=== PATIENT | male | born 1940 | race Hispanic/Latino ===

== ENCOUNTER 2017-12-04 14:25 | Inpatient (IN) | payer OTHER ==
[~2017-12-04] VITALS: Ht 167.6 cm; Wt 79.9 kg
[2017-12-04 15:09] LABS: BASOPHILS % (AUTO) 0.2 % (0.0-5.0); EOSINOPHILS % (AUTO) 2.1 % (0.0-8.0); HEMATOCRIT 26.1 % (42-54); LYMPHOCYTES % (AUTO) 10.1 % (21.0-51.0); MEAN CORPUSCULAR HGB CONC 34.2 g/dL (32.0-36.0); MEAN CORPUSCULAR VOLUME 93.6 fL (79-99); MONOCYTES % (AUTO) 13.1 % (3.0-13.0); NEUTROPHILS % (AUTO) 74.5 % (40.0-77.0); PLATELET COUNT (AUTO) 214 K/uL (130-400); RED BLOOD CELL COUNT(AUTO) 2.79 MIL/uL (4.50-6.20); RED CELL DISTRIBUTION WIDTH 13.1 % (11.0-15.5); WHITE BLOOD COUNT (AUTO) 7.1 K/uL (4.8-10.8)
[2017-12-04] MEDS ORDERED: SODIUM CHLORIDE 0.9% 1000ML 1,000 ML IV ONE (15:10)
[2017-12-04] MEDS ORDERED: ACETAMINOPHEN 325 MG TAB ONE (15:10)
[2017-12-04 15:25] LABS: INR 0.95 (0.85-1.15); PARTIAL THROMBOPLASTIN TIME 26.6 SEC (26.3-35.5)
[2017-12-04 15:34] LABS: ALANINE AMINOTRANSFERASE 12 U/L (12-78); ASPARTATE AMINOTRANSFERASE 18 U/L (10-37); BILIRUBIN,TOTAL 0.4 mg/dL (0.2-1.0); CARBON DIOXIDE 19 mmol/L (21-32); CHLORIDE 99 mmol/L (101-111); CREATINE KINASE MB 0.9 ng/mL (0.5-3.6); CREATINE KINASE, TOTAL 110 U/L (21-232); GLOMERULAR FILTR. RATE CALC 7 mL/min (>60); GLUCOSE,RANDOM 174 mg/dL (70-105); MYOGLOBIN 321 ng/mL (10-92); SODIUM SERUM 133 mmol/L (136-145); TROPONIN I < 0.04 ng/mL (0.00-0.06)
[2017-12-04 15:46] LABS: CREATININE 8.1 mg/dL (0.5-1.5); UREA NITROGEN, BLOOD 111 mg/dL (7-18)
[2017-12-04] MEDS ORDERED: MEROPENEM 1 GM VIAL ONE (15:56)
[2017-12-04] MEDS ORDERED: VANCOMYCIN 1.5 GM in SODIUM CHLORIDE 0.9% 250 ML IV ONE (16:00)
[2017-12-04] MEDS ORDERED: VANCOMYCIN PROTOCOL PER PHARMACY IV SCH (16:15)
[2017-12-04] MEDS ORDERED: CEFTRIAXONE SODIUM 1 GM ONE (18:40)
[2017-12-04] MEDS ORDERED: DOXYCYCLINE 100MG+NS 250ML 250 ML IV ONE (18:40)
[2017-12-04 21:25] VITALS: BP 152/73
[2017-12-04] MEDS ORDERED: ACETAMINOPHEN 325 MG TAB PO PRN (22:00)
[2017-12-04] MEDS ORDERED: ONDANSETRON HCL MDV 20ML 2 MG/ML VIAL IVP PRN (22:00)
[2017-12-04] MEDS ORDERED: MORPHINE SULFATE 2 MG/ML 1ML SYG IVP PRN (22:00)
[2017-12-04] MEDS ORDERED: CEFTRIAXONE SODIUM 1 GM IVP SCH (22:00)
[2017-12-04] MEDS ORDERED: CLONIDINE HCL 0.1 MG TABLET PO PRN (22:00)
[2017-12-04] MEDS ORDERED: LACTULOSE 20 GM/30 ML UDCUP PO PRN (22:00)
[2017-12-05] MEDS ORDERED: METO-409 PO (01:15)
[2017-12-05] MEDS ORDERED: DEXTROSE 50%-WATER 50 ML DISP.SYRIN IV PRN (01:15)
[2017-12-05] MEDS ORDERED: EZET10TA26 PO (01:15)
[2017-12-05] MEDS ORDERED: POTASSIUM CHLORIDE 20MEQ/100ML 100 ML IV PRN (01:15)
[2017-12-05] MEDS ORDERED: GLUCAGON 1MG KIT 1 MG ML IM PRN (01:15)
[2017-12-05] MEDS ORDERED: POTASSIUM CHLORIDE 10% ELIXIR 20 MEQ/15 ML UDCUP PO PRN (01:15)
[2017-12-05] MEDS ORDERED: LIDOCAINE HCL-MPF 1% 2ML VIAL IVP PRN (01:15)
[2017-12-05] MEDS ORDERED: POTASSIUM CHLORIDE 20 MEQ ERTAB PO PRN (01:15)
[2017-12-05] MEDS ORDERED: CEPH250C2 PO (01:15)
[2017-12-05] MEDS ORDERED: IRON1CAP32 PO (01:15)
[2017-12-05] MEDS ORDERED: FURO20TA4 PO (01:20)
[2017-12-05] MEDS ORDERED: CHOL100040 PO (01:31)
[2017-12-05] MEDS ORDERED: FERR325T22 PO (01:31)
[2017-12-05] MEDS ORDERED: ALBU2.5V2 IH (01:31)
[2017-12-05 01:52] LABS: APPEARANCE,URINE Clear (CLEAR); BILIRUBIN,URINE Negative (NEGATIVE); COLOR,URINE Yellow (YELLOW); GLUCOSE, URINE (UA) Negative (NEGATIVE); KETONES,URINE Negative (NEGATIVE); LEUKOCYTE ESTERASE ,URINE Trace (NEGATIVE); NITRATE,URINE Negative (NEGATIVE); OCCULT BLOOD,URINE Trace (NEGATIVE); PROTEIN,URINE POS 2+ (NEGATIVE); UROBILINOGEN,URINE 0.2 mg/dL (0.2-1.0)
[2017-12-05 02:01] LABS: BACTERIA,URINE None Seen /HPF (None Seen); MUCUS,URINE Rare LPF (None Seen); RBC,URINE None Seen /HPF (0-1); SQUAMOUS EPITHELIAL CELL,UR Rare /HPF (0-2)
[2017-12-05 04:00] VITALS: BP 135/65
[2017-12-05 05:25] LABS: HEMATOCRIT 24.8 % (42-54); MEAN CORPUSCULAR HEMOGLOBIN 33.3 pg (27.0-33.0); MEAN CORPUSCULAR HGB CONC 35.6 g/dL (32.0-36.0); MEAN CORPUSCULAR VOLUME 93.4 fL (79-99); NUCLEATED RED BLOOD CELLS 0.1 % (0.0-0.19); PLATELET COUNT (AUTO) 211 K/uL (130-400); RED BLOOD CELL COUNT(AUTO) 2.65 MIL/uL (4.50-6.20); RED CELL DISTRIBUTION WIDTH 13.1 % (11.0-15.5); WHITE BLOOD COUNT (AUTO) 7.1 K/uL (4.8-10.8)
[2017-12-05 05:43] LABS: CREATININE 7.8 mg/dL (0.5-1.5); POTASSIUM 5.1 mmol/L (3.5-5.1)
[2017-12-05] MEDS ORDERED: [UNRECOGNIZED DRUG - OTHER] IV SCH (06:00)
[2017-12-05] MEDS ORDERED: DOXYCYCLINE 100 MG IV SCH (06:00)
[2017-12-05] MEDS: ALBUTEROL SULFATE 0.083% 2.5 MG/3 ML INH IH PRN ×4 (06:22→18:37)
[2017-12-05] MEDS ORDERED: INSULIN HUMULIN R 100 UNIT/ML 3ML SQ SCH (07:30)
[2017-12-05 07:59] VITALS: BP 145/65
[2017-12-05] MEDS: ***HM***Cholecalciferol (Vitamin D3) 1,000 UNIT PO SCH (09:00)
[2017-12-05] MEDS: ***HM***Metoprolol Succinate 100 MG PO SCH (09:00)
[2017-12-05] MEDS: FAMOTIDINE 20MG TAB 20 MG TAB PO SCH (09:27)
[2017-12-05] MEDS: FOLIC ACID/VITAMIN B COMP W-C 1 MG CAPSULE PO SCH (09:28)
[2017-12-05] MEDS: FUROSEMIDE 40 MG TABLET PO SCH ×2 (09:28→17:41)
[2017-12-05] MEDS: FERROUS SULFATE 325 MG TABLET.DR PO SCH ×2 (09:28→17:41)
[2017-12-05] MEDS: DOXYCYCLINE 100MG+NS 250ML 250 ML IV SCH ×2 (09:29→21:02)
[2017-12-05 11:30] VITALS: BP 132/58
[2017-12-05] MEDS: MEROPENEM 500 MG VIAL IVP SCH (15:01)
[2017-12-05 16:00] VITALS: BP 123/59
[2017-12-05] MEDS ORDERED: CEFTRIAXONE SODIUM 1 GM IVP SCH (18:00)
[2017-12-05 19:45] VITALS: BP 135/60
[2017-12-05] MEDS: EZETIMIBE 10 MG TAB PO SCH (21:02)
[2017-12-06 00:08] VITALS: BP 136/64
[2017-12-06 04:46] VITALS: BP 131/64
[2017-12-06] MEDS: ALBUTEROL SULFATE 0.083% 2.5 MG/3 ML INH IH PRN ×2 (06:11→14:15)
[2017-12-06] MEDS: FUROSEMIDE 40 MG TABLET PO SCH ×2 (06:52→17:17)
[2017-12-06 08:20] VITALS: BP 133/63
[2017-12-06] MEDS: ***HM***Metoprolol Succinate 100 MG PO SCH (09:00)
[2017-12-06] MEDS: ***HM***Cholecalciferol (Vitamin D3) 1,000 UNIT PO SCH (09:00)
[2017-12-06] MEDS: FOLIC ACID/VITAMIN B COMP W-C 1 MG CAPSULE PO SCH (09:41)
[2017-12-06] MEDS: FAMOTIDINE 20MG TAB 20 MG TAB PO SCH (09:41)
[2017-12-06] MEDS: FERROUS SULFATE 325 MG TABLET.DR PO SCH ×2 (09:41→17:16)
[2017-12-06] MEDS: DOXYCYCLINE 100MG+NS 250ML 250 ML IV SCH ×2 (09:45→20:57)
[2017-12-06 12:00] VITALS: BP 121/62
[2017-12-06] MEDS: MEROPENEM 500 MG VIAL IVP SCH (15:57)
[2017-12-06 16:00] VITALS: BP 132/67
[2017-12-06 19:10] VITALS: BP 136/59
[2017-12-06] MEDS: EZETIMIBE 10 MG TAB PO SCH (20:57)
[2017-12-06] MEDS: HYDROCORTISONE 1% 28.35 GM CREAM TP SCH (20:57)
[2017-12-07 00:10] VITALS: BP 142/72
[2017-12-07 04:00] VITALS: BP 136/68
[2017-12-07 05:20] LABS: MEAN CORPUSCULAR HGB CONC 36.3 g/dL (32.0-36.0); MEAN CORPUSCULAR VOLUME 93.6 fL (79-99); PLATELET COUNT (AUTO) 198 K/uL (130-400); RED BLOOD CELL COUNT(AUTO) 2.46 MIL/uL (4.50-6.20); RED CELL DISTRIBUTION WIDTH 13.1 % (11.0-15.5); WHITE BLOOD COUNT (AUTO) 6.5 K/uL (4.8-10.8)
[2017-12-07 05:32] LABS: POTASSIUM 4.9 mmol/L (3.5-5.1)
[2017-12-07 05:35] LABS: CREATININE 8.1 mg/dL (0.5-1.5)
[2017-12-07] MEDS: FUROSEMIDE 40 MG TABLET PO SCH ×2 (06:26→18:09)
[2017-12-07] MEDS: ALBUTEROL SULFATE 0.083% 2.5 MG/3 ML INH IH PRN ×3 (06:26→19:39)
[2017-12-07] MEDS: FERROUS SULFATE 325 MG TABLET.DR PO SCH ×2 (08:00→18:09)
[2017-12-07 08:08] VITALS: BP 122/57
[2017-12-07] MEDS: ***HM***Metoprolol Succinate 100 MG PO SCH (09:00)
[2017-12-07] MEDS: ***HM***Cholecalciferol (Vitamin D3) 1,000 UNIT PO SCH (09:00)
[2017-12-07] MEDS: FOLIC ACID/VITAMIN B COMP W-C 1 MG CAPSULE PO SCH (09:30)
[2017-12-07] MEDS: DOXYCYCLINE 100MG+NS 250ML 250 ML IV SCH ×2 (09:30→20:29)
[2017-12-07] MEDS: VALACYCLOVIR HCL 500 MG TABLET PO SCH (09:30)
[2017-12-07] MEDS: FAMOTIDINE 20MG TAB 20 MG TAB PO SCH (09:30)
[2017-12-07] MEDS: HYDROCORTISONE 1% 28.35 GM CREAM TP SCH ×2 (09:32→20:30)
[2017-12-07 11:50] VITALS: BP 126/61
[2017-12-07 16:24] VITALS: BP 123/57
[2017-12-07 19:05] VITALS: BP 131/72
[2017-12-07] MEDS: EZETIMIBE 10 MG TAB PO SCH (20:29)
[2017-12-08] VITALS (14 sets, daily range): BP systolic 71–170; BP diastolic 64–100
[2017-12-08 05:10] LABS: POTASSIUM 4.6 mmol/L (3.5-5.1)
[2017-12-08 05:31] LABS: CREATININE 8.1 mg/dL (0.5-1.5)
[2017-12-08] MEDS: FUROSEMIDE 40 MG TABLET PO SCH ×2 (06:08→16:58)
[2017-12-08] MEDS ORDERED: LIDOCAINE HCL 1% 20 ML VIAL ONE (08:52)
[2017-12-08] MEDS: ***HM***Cholecalciferol (Vitamin D3) 1,000 UNIT PO SCH (09:00)
[2017-12-08] MEDS: HYDROCORTISONE 1% 28.35 GM CREAM TP SCH (09:00)
[2017-12-08] MEDS: ***HM***Metoprolol Succinate 100 MG PO SCH (09:00)
[2017-12-08] MEDS: FAMOTIDINE 20MG TAB 20 MG TAB PO SCH (10:18)
[2017-12-08] MEDS: FOLIC ACID/VITAMIN B COMP W-C 1 MG CAPSULE PO SCH (10:18)
[2017-12-08] MEDS: DOXYCYCLINE 100MG+NS 250ML 250 ML IV SCH ×2 (10:18→20:47)
[2017-12-08] MEDS: FERROUS SULFATE 325 MG TABLET.DR PO SCH ×2 (10:18→16:56)
[2017-12-08] MEDS: VALACYCLOVIR HCL 500 MG TABLET PO SCH (10:23)
[2017-12-08] MEDS ORDERED: VANCOMYCIN 1GM+NS 250ML 250 ML IV SCH (12:00)
[2017-12-08] MEDS ORDERED: ALBUMIN (HUMAN) 25% 100 ML IV PRN (15:00)
[2017-12-08] MEDS ORDERED: 0.9% SODIUM CHLORIDE 250 ML IV BAG IV PRN (15:00)
[2017-12-08] MEDS ORDERED: HEPARIN SODIUM 5000UNIT/ML 1ML VIAL IJ PRN (15:00)
[2017-12-08] MEDS ORDERED: FUROSEMIDE 40 MG TABLET ONE (16:51)
[2017-12-08] MEDS ORDERED: FERROUS SULFATE 325 MG TABLET.DR ONE (16:52)
[2017-12-08] MEDS: EZETIMIBE 10 MG TAB PO SCH (20:46)
[2017-12-09] VITALS (8 sets, daily range): BP systolic 96–141; BP diastolic 48–76
[2017-12-09 05:32] LABS: CHOLESTEROL 162 mg/dL (<200); HDL CHOLESTEROL 50 mg/dL (29-71); LDL DIRECT 117 mg/dL (0-99); TRIGLYCERIDES 85 mg/dL (30-200)
[2017-12-09 05:40] LABS: % IRON SATURATION 29.4 % (30-44)
[2017-12-09] MEDS: FUROSEMIDE 40 MG TABLET PO SCH ×2 (05:43→17:01)
[2017-12-09 05:49] LABS: HEMOGLOBIN A1C 5.6 % (4.0-6.0)
[2017-12-09 08:02] LABS: HEPATITIS Bs ANTIGEN SCREEN P Negative (Negative)
[2017-12-09] MEDS: ***HM***Cholecalciferol (Vitamin D3) 1,000 UNIT PO SCH (09:00)
[2017-12-09] MEDS: ***HM***Metoprolol Succinate 100 MG PO SCH (09:00)
[2017-12-09 09:43] LABS: RED CELL DISTRIBUTION WIDTH 12.9 % (11.0-15.5)
[2017-12-09 09:52] LABS: BASOPHILS % (AUTO) 0.9 % (0.0-5.0); EOSINOPHILS % (AUTO) 3.5 % (0.0-8.0); MEAN CORPUSCULAR HEMOGLOBIN 32.9 pg (27.0-33.0); MEAN CORPUSCULAR HGB CONC 35.4 g/dL (32.0-36.0); MEAN CORPUSCULAR VOLUME 93.1 fL (79-99); MONOCYTES % (AUTO) 12.9 % (3.0-13.0); NEUTROPHILS % (AUTO) 63.7 % (40.0-77.0); PLATELET COUNT (AUTO) 254 K/uL (130-400); WHITE BLOOD COUNT (AUTO) 7.5 K/uL (4.8-10.8)
[2017-12-09 09:53] LABS: CREATININE 2.8 mg/dL (0.5-1.5); POTASSIUM 3.5 mmol/L (3.5-5.1)
[2017-12-09 09:57] LABS: ALBUMIN 3.3 g/dL (3.5-5.0); BILIRUBIN,TOTAL 0.5 mg/dL (0.2-1.0)
[2017-12-09] MEDS: DOXYCYCLINE 100MG+NS 250ML 250 ML IV SCH ×2 (10:35→21:06)
[2017-12-09] MEDS: FOLIC ACID/VITAMIN B COMP W-C 1 MG CAPSULE PO SCH (10:36)
[2017-12-09] MEDS: VALACYCLOVIR HCL 500 MG TABLET PO SCH (10:36)
[2017-12-09] MEDS: FAMOTIDINE 20MG TAB 20 MG TAB PO SCH (10:36)
[2017-12-09] MEDS: FERROUS SULFATE 325 MG TABLET.DR PO SCH ×2 (10:44→16:54)
[2017-12-09] MEDS: ALBUTEROL SULFATE 0.083% 2.5 MG/3 ML INH IH PRN ×2 (12:02→18:43)
[2017-12-09] MEDS: EZETIMIBE 10 MG TAB PO SCH (21:06)
[2017-12-10] VITALS (21 sets, daily range): BP systolic 109–155; BP diastolic 58–74
[2017-12-10 05:43] LABS: CREATININE 6.2 mg/dL (0.5-1.5); POTASSIUM 4.4 mmol/L (3.5-5.1)
[2017-12-10] MEDS: FUROSEMIDE 40 MG TABLET PO SCH ×2 (06:00→16:44)
[2017-12-10] MEDS ORDERED: BACITRACIN 50,000 UNIT VIAL ONE (07:12)
[2017-12-10] MEDS: SODIUM CHLORIDE 0.9% 1000ML 1,000 ML IV PRN (07:22)
[2017-12-10] MEDS ORDERED: ROPIVACAINE 0.5% 5MG/ML 30ML IJ ONE (07:41)
[2017-12-10] MEDS ORDERED: LIDOCAINE HCL-MPF 2% 10ML AMP IJ ONE (07:41)
[2017-12-10] MEDS ORDERED: MIDAZOLAM HCL 1 MG/ML 2ML VIAL ONE (07:43)
[2017-12-10] MEDS ORDERED: CEFAZOLIN SODIUM 1 GM VIAL ONE (08:12)
[2017-12-10] MEDS ORDERED: FENTANYL CITRATE PF 50 MCG/1 ML 2ML VIAL ONE (08:12)
[2017-12-10] MEDS ORDERED: PROPOFOL 10 MG/ML 20ML VIAL IV ONE (08:18)
[2017-12-10] MEDS ORDERED: PAPAVERINE HCL 30 MG/ML 2ML VIAL ONE (08:33)
[2017-12-10] MEDS ORDERED: ONDANSETRON HCL MDV 20ML 2 MG/ML VIAL ONE (08:53)
[2017-12-10] MEDS ORDERED: DEXAMETHASONE SOD PHOSPHATE 10MG/ML 1ML VIAL ONE (08:53)
[2017-12-10] MEDS ORDERED: LIDOCAINE HCL MPF 1% 5ML VIAL ONE (08:53)
[2017-12-10] MEDS ORDERED: LIDOCAINE HCL 2% JELLY 5 ML ONE (08:53)
[2017-12-10] MEDS: ***HM***Metoprolol Succinate 100 MG PO SCH (09:00)
[2017-12-10] MEDS: ***HM***Cholecalciferol (Vitamin D3) 1,000 UNIT PO SCH (09:00)
[2017-12-10] MEDS: FERROUS SULFATE 325 MG TABLET.DR PO SCH ×2 (10:36→16:44)
[2017-12-10] MEDS: DOXYCYCLINE 100MG+NS 250ML 250 ML IV SCH ×2 (10:36→20:14)
[2017-12-10] MEDS: FAMOTIDINE 20MG TAB 20 MG TAB PO SCH (10:36)
[2017-12-10] MEDS: FOLIC ACID/VITAMIN B COMP W-C 1 MG CAPSULE PO SCH (10:36)
[2017-12-10] MEDS: VALACYCLOVIR HCL 500 MG TABLET PO SCH (10:36)
[2017-12-10] MEDS: EZETIMIBE 10 MG TAB PO SCH (20:14)
[2017-12-10] MEDS: ALBUTEROL SULFATE 0.083% 2.5 MG/3 ML INH IH PRN (23:08)
[2017-12-11 04:00] VITALS: BP 136/68
[2017-12-11] MEDS: FUROSEMIDE 40 MG TABLET PO SCH ×2 (05:40→17:36)
[2017-12-11] MEDS: ALBUTEROL SULFATE 0.083% 2.5 MG/3 ML INH IH PRN (07:24)
[2017-12-11 07:58] VITALS: BP 135/71
[2017-12-11] MEDS: FAMOTIDINE 20MG TAB 20 MG TAB PO SCH (08:14)
[2017-12-11] MEDS: FOLIC ACID/VITAMIN B COMP W-C 1 MG CAPSULE PO SCH (08:14)
[2017-12-11] MEDS: VALACYCLOVIR HCL 500 MG TABLET PO SCH (08:14)
[2017-12-11] MEDS: DOXYCYCLINE 100MG+NS 250ML 250 ML IV SCH ×2 (08:14→20:56)
[2017-12-11] MEDS: FERROUS SULFATE 325 MG TABLET.DR PO SCH ×2 (08:14→17:36)
[2017-12-11] MEDS: ***HM***Cholecalciferol (Vitamin D3) 1,000 UNIT PO SCH (08:15)
[2017-12-11] MEDS: ***HM***Metoprolol Succinate 100 MG PO SCH (08:15)
[2017-12-11] MEDS: SODIUM CHLORIDE 0.9% 1000ML 1,000 ML IV PRN (09:59)
[2017-12-11 10:34] LABS: HEMATOCRIT 24.4 % (42-54); MEAN CORPUSCULAR HEMOGLOBIN 33.5 pg (27.0-33.0); MEAN CORPUSCULAR HGB CONC 35.7 g/dL (32.0-36.0); MEAN CORPUSCULAR VOLUME 93.9 fL (79-99); PLATELET COUNT (AUTO) 220 K/uL (130-400); WHITE BLOOD COUNT (AUTO) 8.2 K/uL (4.8-10.8)
[2017-12-11 11:50] VITALS: BP 111/63
[2017-12-11 16:34] VITALS: BP 110/54
[2017-12-11 20:00] VITALS: BP 124/63
[2017-12-11] MEDS: EZETIMIBE 10 MG TAB PO SCH (20:57)
[2017-12-11 23:50] VITALS: BP 122/60
[2017-12-12 04:00] VITALS: BP 110/63
[2017-12-12] MEDS: FUROSEMIDE 40 MG TABLET PO SCH (05:21)
[2017-12-12 07:30] VITALS: BP 121/59
[2017-12-12] MEDS: FERROUS SULFATE 325 MG TABLET.DR PO SCH (08:00)
[2017-12-12] MEDS: ***HM***Metoprolol Succinate 100 MG PO SCH (09:00)
[2017-12-12] MEDS: ***HM***Cholecalciferol (Vitamin D3) 1,000 UNIT PO SCH (09:00)
[2017-12-12] MEDS: DOXYCYCLINE 100MG+NS 250ML 250 ML IV SCH (10:02)
[2017-12-12] MEDS: VALACYCLOVIR HCL 500 MG TABLET PO SCH (10:02)
[2017-12-12] MEDS: FAMOTIDINE 20MG TAB 20 MG TAB PO SCH (10:02)
[2017-12-12] MEDS: FOLIC ACID/VITAMIN B COMP W-C 1 MG CAPSULE PO SCH (10:02)
[2017-12-12] MEDS ORDERED: DOXY100C2 PO (10:14)
[2017-12-12 11:00] VITALS: BP 114/56
== END 2017-12-12 15:11 | disposition home or self-care (01) | DRG 579 ==
LOC: EDH 14:25 → EDHIP 17:13 → 4CH 21:24 → UNDODISIN 12-08 12:15
PROVIDERS: ADMIT Family Medicine; ATTEND Family Medicine
PROC: 0JH63XZ Insertion of Tunneled Vascular Access Device into Chest Subcutaneous Tissue and Fascia, Percutaneous Approach (ICD-10-PCS; principal; 2017-12-08)
PROC: 02H633Z Insertion of Infusion Device into Right Atrium, Percutaneous Approach (ICD-10-PCS; 2017-12-08)
PROC: B244ZZZ Ultrasonography of Right Heart (ICD-10-PCS; 2017-12-08)
PROC: 5A1D70Z Performance of Urinary Filtration, Intermittent, Less than 6 Hours Per Day (ICD-10-PCS; 2017-12-08)
PROC: 5A1D70Z Performance of Urinary Filtration, Intermittent, Less than 6 Hours Per Day (ICD-10-PCS; 2017-12-09)
PROC: 5A1D70Z Performance of Urinary Filtration, Intermittent, Less than 6 Hours Per Day (ICD-10-PCS; 2017-12-11)
DX: B02.9 Zoster without complications (principal); N18.6 End stage renal disease; E87.70 Fluid overload, unspecified; I12.0 Hypertensive chronic kidney disease with stage 5 chronic kidney disease or end stage renal disease; L03.311 Cellulitis of abdominal wall; L03.317 Cellulitis of buttock; D63.1 Anemia in chronic kidney disease; E78.5 Hyperlipidemia, unspecified; Z87.891 Personal history of nicotine dependence; Z91.15 Patient's noncompliance with renal dialysis; Z99.2 Dependence on renal dialysis; Z52.4 Kidney donor
CPT/HCPCS: 36415; 36558; 70450; 71045; 74176; 77001; 80048; 80053; 80061; 81001; 82550; 82553; 82728; 82948; 83036; 83540; 83550; 83605; 83874; 84484; 85025; 85027; 85610; 85730; 86701; 86704; 86706; 86708; 87040; 87088; 87340; 87390; 87520; 90935; 93005; 93971; 94640; 94664; A4218; C1750; C1768; J0690; J0696; J1100; J1644; J2185; J2250; J2440; J2704; J2795; J3010; J3370; J3490; J7030; J7040

== ENCOUNTER 2018-01-23 07:51 | Day surgery (SDC) | payer OTHER ==
[~2018-01-23 07:51] MED LIST: ALBU2.5V2 IH; CHOL100040 PO; DOXY100C2 PO; EZET10TA26 PO; FERR325T22 PO; FURO20TA4 PO; IRON1CAP32 PO; METO-409 PO
[2018-01-23 08:00] VITALS: BP 125/54
[2018-01-23 08:39] LABS: POTASSIUM 4.6 mmol/L (3.5-5.1)
[2018-01-23 08:41] LABS: INR 0.95 (0.85-1.15)
[2018-01-23] MEDS ORDERED: LIDOCAINE HCL 1% MDV 50ML VIAL ONE (10:58)
== END 2018-01-23 12:25 | disposition home or self-care (01) ==
LOC: DAH 07:51
PROVIDERS: ATTEND Internal Medicine Nephrology
DX: Z45.2 Encounter for adjustment and management of vascular access device (principal); I12.0 Hypertensive chronic kidney disease with stage 5 chronic kidney disease or end stage renal disease; N18.6 End stage renal disease; Z99.2 Dependence on renal dialysis; Z90.5 Acquired absence of kidney; E78.5 Hyperlipidemia, unspecified; D64.9 Anemia, unspecified; Z98.890 Other specified postprocedural states; Z79.899 Other long term (current) drug therapy
CPT/HCPCS: 36415; 36589; 71045; 80048; 85610; 85730; A4606; J3490

== ENCOUNTER 2018-02-07 10:45 | Emergency (ER) | payer OTHER ==
[2018-02-07 12:09] LABS: EOSINOPHILS % (AUTO) 6.1 % (0.0-8.0); HEMATOCRIT 31.1 % (42-54); LYMPHOCYTES % (AUTO) 24.2 % (21.0-51.0); MEAN CORPUSCULAR HEMOGLOBIN 31.9 pg (27.0-33.0); MEAN CORPUSCULAR HGB CONC 33.6 g/dL (32.0-36.0); MEAN CORPUSCULAR VOLUME 94.8 fL (79-99); MONOCYTES % (AUTO) 9.4 % (3.0-13.0); NEUTROPHILS % (AUTO) 59.3 % (40.0-77.0); PLATELET COUNT (AUTO) 217 K/uL (130-400); RED BLOOD CELL COUNT(AUTO) 3.28 MIL/uL (4.50-6.20); RED CELL DISTRIBUTION WIDTH 15.2 % (11.0-15.5); WHITE BLOOD COUNT (AUTO) 6.6 K/uL (4.8-10.8)
[2018-02-07 12:10] LABS: CREATININE 6.9 mg/dL (0.5-1.5); POTASSIUM 4.9 mmol/L (3.5-5.1)
== END 2018-02-07 12:48 | disposition home or self-care (01) ==
LOC: EDH 10:45
DX: T82.598A Other mechanical complication of other cardiac and vascular devices and implants, initial encounter (principal); I12.0 Hypertensive chronic kidney disease with stage 5 chronic kidney disease or end stage renal disease; N18.6 End stage renal disease; E78.5 Hyperlipidemia, unspecified; Z90.49 Acquired absence of other specified parts of digestive tract; Z98.890 Other specified postprocedural states
CPT/HCPCS: 36415; 80048; 85025

== ENCOUNTER 2018-02-09 11:14 | Day surgery (SDC) | payer OTHER ==
[~2018-02-09] VITALS: Ht 165.1 cm; Wt 86.7 kg
[2018-02-09 11:35] VITALS: BP 112/52
[2018-02-09 12:08] LABS: POTASSIUM 5.5 mmol/L (3.5-5.1)
[2018-02-09 12:15] LABS: INR 0.95 (0.85-1.15); PARTIAL THROMBOPLASTIN TIME 26.4 SEC (26.3-35.5)
[2018-02-09 12:38] LABS: CREATININE 9.5 mg/dL (0.5-1.5)
[2018-02-09] MEDS ORDERED: SODIUM CHLORIDE 0.9% 1000ML 1,000 ML IV ONE (13:15)
[2018-02-09] MEDS ORDERED: MIDAZOLAM HCL 1 MG/ML 2ML VIAL ONE (14:48)
[2018-02-09] MEDS ORDERED: HEPARIN SODIUM 1000UNIT/ML 10ML VIAL ONE (14:48)
[2018-02-09] MEDS ORDERED: SODIUM BICARB 50MEQ 50ML VIAL ONE (14:48)
[2018-02-09] MEDS ORDERED: LIDOCAINE HCL 1% 20 ML VIAL ONE (14:48)
[2018-02-09] MEDS ORDERED: FENTANYL CITRATE PF 50 MCG/1 ML 2ML VIAL ONE (14:48)
[2018-02-09] MEDS ORDERED: ISOVUE-300 100 ML VIAL IV ONE (15:01)
[2018-02-09 16:45] VITALS: BP 133/68
[2018-02-09 17:25] VITALS: BP 132/66
== END 2018-02-09 17:28 | disposition home or self-care (01) ==
LOC: DAH 11:14
PROVIDERS: ATTEND Internal Medicine Nephrology
DX: T82.858A Stenosis of other vascular prosthetic devices, implants and grafts, initial encounter (principal); E78.5 Hyperlipidemia, unspecified; D64.9 Anemia, unspecified; Z98.890 Other specified postprocedural states; Z87.891 Personal history of nicotine dependence; I12.0 Hypertensive chronic kidney disease with stage 5 chronic kidney disease or end stage renal disease; E11.22 Type 2 diabetes mellitus with diabetic chronic kidney disease; N18.6 End stage renal disease
CPT/HCPCS: 36415; 36905; 80048; 85610; 85730; A4606; C1725 ×2; C1757; C1769 ×2; C1894 ×3; J1644; J3490; J7030; Q9967; J2250; J3010

== ENCOUNTER 2018-02-17 11:38 | Day surgery (SDC) | payer OTHER ==
[~2018-02-17] VITALS: Ht 165.1 cm; Wt 86.5 kg
[2018-02-17 12:07] VITALS: BP 126/65
[2018-02-17 12:44] LABS: POTASSIUM 4.4 mmol/L (3.5-5.1)
[2018-02-17 12:47] LABS: CREATININE 7.9 mg/dL (0.5-1.5)
[2018-02-17 12:52] LABS: INR 0.94 (0.85-1.15); PARTIAL THROMBOPLASTIN TIME 26.6 SEC (26.3-35.5); PROTHROMBIN TIME 9.9 SEC (9.6-11.6)
[2018-02-17] MEDS ORDERED: SODIUM CHLORIDE 0.9% 1000ML 1,000 ML IV ONE (13:38)
[2018-02-17] MEDS ORDERED: ISOVUE-300 100 ML VIAL IV ONE (14:30)
[2018-02-17] MEDS ORDERED: LIDOCAINE HCL 2% 20ML ONE (14:30)
[2018-02-17] MEDS ORDERED: HEPARIN SODIUM 1000UNIT/ML 10ML VIAL ONE (15:04)
[2018-02-17 16:00] VITALS: BP 128/68
[2018-02-17 16:15] VITALS: BP 122/84
[2018-02-17 16:30] VITALS: BP 124/86
== END 2018-02-17 16:38 | disposition home or self-care (01) ==
LOC: DAH 11:38
PROVIDERS: ATTEND Internal Medicine Nephrology
DX: T82.868A Thrombosis due to vascular prosthetic devices, implants and grafts, initial encounter (principal); I12.0 Hypertensive chronic kidney disease with stage 5 chronic kidney disease or end stage renal disease; N18.6 End stage renal disease; Z90.5 Acquired absence of kidney; E78.5 Hyperlipidemia, unspecified; D64.9 Anemia, unspecified
CPT/HCPCS: 36415; 36905; 80048; 85610; 85730; A4606; C1725; C1757; C1769 ×2; C1894 ×2; J1644 ×2; J3490; J7030; Q9967

== ENCOUNTER 2018-02-27 11:02 | Day surgery (SDC) | payer OTHER ==
[2018-02-27 11:25] VITALS: BP 119/58
[2018-02-27 12:00] LABS: POTASSIUM 4.9 mmol/L (3.5-5.1)
[2018-02-27 12:03] LABS: INR 0.95 (0.85-1.15); PARTIAL THROMBOPLASTIN TIME 27.3 SEC (26.3-35.5)
[2018-02-27 12:16] LABS: CREATININE 8.3 mg/dL (0.5-1.5)
[2018-02-27] MEDS ORDERED: LIDOCAINE HCL-MPF 2% 5ML VIAL ONE (12:31)
[2018-02-27] MEDS ORDERED: SODIUM CHLORIDE 0.9% 1000ML 1,000 ML IV ONE (12:50)
[2018-02-27 13:35] VITALS: BP 136/73
[2018-02-27 14:20] VITALS: BP 140/73
== END 2018-02-27 14:44 | disposition home or self-care (01) ==
LOC: DAH 11:02
PROVIDERS: ATTEND Internal Medicine Nephrology
DX: T82.868A Thrombosis due to vascular prosthetic devices, implants and grafts, initial encounter (principal); N17.9 Acute kidney failure, unspecified; Y83.8 Other surgical procedures as the cause of abnormal reaction of the patient, or of later complication, without mention of misadventure at the time of the procedure; N18.6 End stage renal disease; I12.0 Hypertensive chronic kidney disease with stage 5 chronic kidney disease or end stage renal disease; E78.5 Hyperlipidemia, unspecified; Z90.5 Acquired absence of kidney; Z98.890 Other specified postprocedural states; Z87.891 Personal history of nicotine dependence
CPT/HCPCS: 36415; 36558; 77001; 80048; 85610; 85730; A4606; C1750; C1894; J1644 ×2; J3490; J7030

== ENCOUNTER 2018-05-18 06:49 | Day surgery (SDC) | payer OTHER ==
[2018-05-14 11:11] VITALS: BP 114/50
[2018-05-14 11:55] LABS: CREATININE 4.4 mg/dL (0.5-1.5); POTASSIUM 4.7 mmol/L (3.5-5.1)
[2018-05-14 12:03] LABS: BASOPHILS % (AUTO) 0.7 % (0.0-5.0); EOSINOPHILS % (AUTO) 5.1 % (0.0-8.0); HEMATOCRIT 40.3 % (42-54); LYMPHOCYTES % (AUTO) 26.8 % (21.0-51.0); MEAN CORPUSCULAR HEMOGLOBIN 30.5 pg (27.0-33.0); MEAN CORPUSCULAR HGB CONC 32.8 g/dL (32.0-36.0); MONOCYTES % (AUTO) 10.6 % (3.0-13.0); NEUTROPHILS % (AUTO) 56.8 % (40.0-77.0); PLATELET COUNT (AUTO) 155 K/uL (130-400); RED BLOOD CELL COUNT(AUTO) 4.33 MIL/uL (4.50-6.20); RED CELL DISTRIBUTION WIDTH 18.1 % (11.0-15.5); WHITE BLOOD COUNT (AUTO) 5.1 K/uL (4.8-10.8)
[2018-05-18] VITALS (21 sets, daily range): BP systolic 99–129; BP diastolic 43–67
[~2018-05-18] VITALS: Ht 165.1 cm; Wt 87.3 kg
[~2018-05-18 06:49] MED LIST changes: +ASPI-1181 PO; +CEFAZOLIN SODIUM 1 GM VIAL IVP SCH; -CHOL100040 PO; -DOXY100C2 PO; +GENTAMICIN 80 MG/NS 100 ML PB 100 ML IV SCH; +IRON1CAP30 PO; -IRON1CAP32 PO; -METO-409 PO; +PREG75 PO; +SEVE800T7 PO
[2018-05-18] MEDS ORDERED: SODIUM CHLORIDE 0.9% 1000ML 1,000 ML IV ONE ×2 (08:18→08:19)
[2018-05-18 08:58] LABS: POTASSIUM 6.2 mmol/L (3.5-5.1)
[2018-05-18] MEDS ORDERED: MIDAZOLAM HCL 1 MG/ML 2ML VIAL ONE (08:58)
[2018-05-18] MEDS ORDERED: FENTANYL CITRATE PF 50 MCG/1 ML 2ML VIAL ONE (08:58)
[2018-05-18 09:01] LABS: CREATININE 8.7 mg/dL (0.5-1.5)
[2018-05-18] MEDS ORDERED: BUPIVACAINE/PF 0.25% 50ML VIAL IJ ONE (09:03)
[2018-05-18] MEDS ORDERED: SODIUM BICARB [NEONATAL] 4.2% 10ML SYG ONE (09:03)
[2018-05-18] MEDS ORDERED: LIDOCAINE HCL 1% MDV 50ML VIAL ONE (09:03)
[2018-05-18] MEDS ORDERED: NEOMY SULF/POLYMYXIN B SULFATE 1 ML AMPUL IR ONE (09:04)
[2018-05-18] MEDS ORDERED: PAPAVERINE HCL 30 MG/ML 2ML VIAL ONE (09:04)
[2018-05-18] MEDS ORDERED: DEXTROSE 50%-WATER 50 ML DISP.SYRIN IV ONE ×2 (09:11→13:46)
[2018-05-18] MEDS ORDERED: INSULIN HUMULIN R 100 UNIT/ML 3ML ONE ×2 (09:14→12:32)
[2018-05-18] MEDS: CEFAZOLIN SODIUM 1 GM VIAL ONE ×2 (09:26→11:55)
[2018-05-18] MEDS: GENTAMICIN SULFATE 80 MG/2 ML VIAL ONE ×2 (09:27→12:05)
[2018-05-18] MEDS ORDERED: CALCIUM GLUCONATE 1 GM/10 ML VIAL IV SCH (09:45)
[2018-05-18] MEDS ORDERED: INSULIN HUMULIN R 100 UNIT/ML 3ML SQ SCH (09:45)
[2018-05-18] MEDS ORDERED: SODIUM CHLORIDE 0.9% IV SCH (10:00)
[2018-05-18] MEDS ORDERED: CALCIUM GLUCONATE IV SCH (10:00)
[2018-05-18] MEDS ORDERED: SODIUM POLYSTYRENE SULFONATE 15 GM/60 ML ML PO SCH (13:15)
[2018-05-18 13:48] LABS: POTASSIUM 5.6 mmol/L (3.5-5.1)
[2018-05-18 13:57] LABS: CREATININE 8.8 mg/dL (0.5-1.5)
[2018-05-18] MEDS ORDERED: IPRATROPIUM/ALBUTEROL SULFATE 3 ML SOLUTION IH ONE (14:22)
== END 2018-05-18 15:39 | disposition home or self-care (01) ==
LOC: DAH 06:49 → UNDOADMOB 06:50 → DAHIP 06:50 → DAH 15:39
PROVIDERS: ATTEND Surgery
DX: T82.399A Other mechanical complication of unspecified vascular grafts, initial encounter (principal); Z98.890 Other specified postprocedural states; D64.9 Anemia, unspecified; E78.00 Pure hypercholesterolemia, unspecified; J44.9 Chronic obstructive pulmonary disease, unspecified; I25.10 Atherosclerotic heart disease of native coronary artery without angina pectoris; I12.0 Hypertensive chronic kidney disease with stage 5 chronic kidney disease or end stage renal disease; E11.22 Type 2 diabetes mellitus with diabetic chronic kidney disease; N18.5 Chronic kidney disease, stage 5; Z99.2 Dependence on renal dialysis; Z90.5 Acquired absence of kidney; Z87.891 Personal history of nicotine dependence; Z90.49 Acquired absence of other specified parts of digestive tract; Z79.899 Other long term (current) drug therapy; Z82.49 Family history of ischemic heart disease and other diseases of the circulatory system
CPT/HCPCS: 36415 ×2; 36819; 80048 ×3; 82948 ×6; 84132; 85025; 93005; 93971; 94640; 96374; 96375; A4218; J0610 ×2; J0690; J1580; J1644; J1815 ×3; J2250; J3490 ×2; J7030 ×2; J7070 ×2; J2440; J3010

== ENCOUNTER 2018-12-27 13:58 | Observation (INO) | payer OTHER ==
[~2018-12-27] VITALS: Ht 160 cm; Wt 90.5 kg
[~2018-12-27 13:58] MED LIST changes: -CEFAZOLIN SODIUM 1 GM VIAL IVP SCH; -GENTAMICIN 80 MG/NS 100 ML PB 100 ML IV SCH
[2018-12-27] MEDS ORDERED: ACETAMINOPHEN EXTRA STRENGTH 500 MG TABLET ONE (14:29)
[2018-12-27 14:46] LABS: BASOPHILS % (AUTO) 0.2 % (0.0-5.0); EOSINOPHILS % (AUTO) 0.2 % (0.0-8.0); HEMATOCRIT 31.9 % (42-54); LYMPHOCYTES % (AUTO) 5.8 % (21.0-51.0); MEAN CORPUSCULAR HEMOGLOBIN 34.6 pg (27.0-33.0); MEAN CORPUSCULAR VOLUME 98.9 fL (79-99); MONOCYTES % (AUTO) 8.6 % (3.0-13.0); NEUTROPHILS % (AUTO) 85.2 % (40.0-77.0); PLATELET COUNT (AUTO) 181 K/uL (130-400); RED BLOOD CELL COUNT(AUTO) 3.22 MIL/uL (4.50-6.20); RED CELL DISTRIBUTION WIDTH 13.3 % (11.0-15.5); WHITE BLOOD COUNT (AUTO) 10.6 K/uL (4.8-10.8)
[2018-12-27] MEDS ORDERED: ZOSYN 3.375GM+NS 50ML 50 ML IV ONE (14:46)
[2018-12-27] MEDS ORDERED: VANCOMYCIN 1GM+NS 250ML 250 ML IV ONE (14:46)
[2018-12-27 15:03] LABS: ALBUMIN 3.1 g/dL (3.5-5.0); BILIRUBIN,TOTAL 0.5 mg/dL (0.2-1.0); TOTAL PROTEIN, SERUM 7.6 g/dL (6.0-8.3)
[2018-12-27 15:08] LABS: POTASSIUM 6.1 mmol/L (3.5-5.1)
[2018-12-27 15:09] LABS: CREATININE 11.4 mg/dL (0.5-1.5)
[2018-12-27 17:50] VITALS: BP 103/47
[2018-12-27] MEDS ORDERED: LABETALOL HCL 5 MG/ML 20ML VIAL IV PRN (18:45)
[2018-12-27] MEDS ORDERED: ONDANSETRON HCL 4 MG/2 ML VIAL IVP PRN (18:45)
[2018-12-27] MEDS ORDERED: LEVOFLOXACIN 750 MG/D5W 150 ML 150 ML IV SCH (18:45)
[2018-12-27] MEDS ORDERED: HYDROCODONE/ACETAMINOPHEN 5/325 MG TAB PO PRN (18:45)
[2018-12-27 19:05] VITALS: BP 102/48
[2018-12-27] MEDS: ACETAMINOPHEN 325 MG TAB PO SCH (20:56)
[2018-12-27] MEDS: INSULIN R PO SS1 SQ SCH (22:07)
[2018-12-27] MEDS: SODIUM POLYSTYRENE SULFONATE 15 GM/60 ML ML PO SCH (23:45)
[2018-12-27] MEDS ORDERED: SODIUM POLYSTYRENE SULFONATE 15 GM/60 ML ML ONE (23:48)
[2018-12-27] MEDS ORDERED: LORA10TA7 PO (23:57)
[2018-12-27] MEDS ORDERED: PREG75 PO (23:57)
[2018-12-27] MEDS ORDERED: MIDO5TAB PO (23:57)
[2018-12-27] MEDS ORDERED: IPRA4AER IH (23:57)
[2018-12-28] VITALS: BP 111/45
[2018-12-28] MEDS ORDERED: PHARMACY COMMUNICATION MISC SCH (01:30)
[2018-12-28] MEDS: SODIUM POLYSTYRENE SULFONATE 15 GM/60 ML ML PO SCH ×7 (03:16→21:00)
[2018-12-28] MEDS: ACETAMINOPHEN 325 MG TAB PO SCH ×4 (03:17→20:59)
[2018-12-28 03:30] VITALS: BP 108/47
[2018-12-28] MEDS: INSULIN R PO SS1 SQ SCH ×4 (06:21→21:00)
[2018-12-28] MEDS ORDERED: ALBUTEROL SULFATE 0.083% 2.5 MG/3 ML INH IH PRN (06:30)
[2018-12-28 07:30] VITALS: BP 94/49
[2018-12-28] MEDS: PREGABALIN 75 MG CAPSULE PO SCH ×2 (08:17→20:58)
[2018-12-28] MEDS: FERROUS SULFATE 325 MG TABLET.DR PO SCH ×2 (08:17→16:42)
[2018-12-28] MEDS: LORATADINE 10 MG TABLET PO SCH (08:17)
[2018-12-28] MEDS: SEVELAMER HCL 800 MG TABLET PO SCH ×3 (08:17→16:42)
[2018-12-28] MEDS: MIDODRINE HCL 5 MG TABLET PO SCH ×2 (08:17→20:58)
--- NOTE | 2018-12-28 10:32 | NUR ---
0915 PATIENT IS RECEIVING DIALYSIS.WILL ATTEMPT TO SEE PATIENT IN PM FOR PT EVALUATION. Addendum: 12/28/18 at 1033 by DEEPA LORENZ, PT PT Amended: Links added.
[2018-12-28 11:00] VITALS: BP 90/55
[2018-12-28] MEDS ORDERED: ZOSYN 3.375GM+NS 50ML 50 ML IV SCH (11:15)
[2018-12-28 16:00] VITALS: BP 105/51
[2018-12-28] MEDS: FUROSEMIDE 20 MG TABLET PO SCH ×2 (16:42→16:50)
--- NOTE | 2018-12-28 17:24 | NUR ---
CM INITIAL IA done with pt and suman at [facility]; lives with sposeu in [facility], suman triplett is provider, and comes to pt's hosue each day. 22 hrs /wk. Pt has a cane, no other DME and daughter says is too weak on his feet, needs a walker. Will review PT notes for med necessity. HD at [facility], came to [facility] because could not wait for HD day, weak, and with fever. States is compliant with HD treatments Addendum: 12/28/18 at 1728 by KIRK AUGUST RN CM Amended: Links added.
[2018-12-28 20:00] VITALS: BP 99/48
[2018-12-28] MEDS ORDERED: INTEGRA PO SCH (21:00)
[2018-12-28] MEDS ORDERED: EZETIMIBE 10 MG TAB PO SCH (21:00)
[2018-12-28] MEDS ORDERED: IPRATROPIUM/ALBUTEROL SULFATE 3 ML SOLUTION IH SCH (21:00)
[2018-12-28] MEDS ORDERED: IPRATROPIUM/ALBUTEROL SULFATE 3 ML SOLUTION IH PRN (21:00)
[2018-12-29] VITALS: BP 110/54
[2018-12-29] MEDS: ACETAMINOPHEN 325 MG TAB PO SCH ×3 (02:38→15:00)
[2018-12-29 04:12] VITALS: BP 106/55
[2018-12-29 04:24] LABS: BASOPHILS % (AUTO) 0.3 % (0.0-5.0); EOSINOPHILS % (AUTO) 0.7 % (0.0-8.0); HEMATOCRIT 27.8 % (42-54); LYMPHOCYTES % (AUTO) 9.8 % (21.0-51.0); MEAN CORPUSCULAR HEMOGLOBIN 34.8 pg (27.0-33.0); MEAN CORPUSCULAR VOLUME 99.5 fL (79-99); MONOCYTES % (AUTO) 9.4 % (3.0-13.0); NEUTROPHILS % (AUTO) 79.8 % (40.0-77.0); NUCLEATED RED BLOOD CELLS 0.1 % (0.0-0.19); PLATELET COUNT (AUTO) 189 K/uL (130-400); RED BLOOD CELL COUNT(AUTO) 2.79 MIL/uL (4.50-6.20); RED CELL DISTRIBUTION WIDTH 13.2 % (11.0-15.5); WHITE BLOOD COUNT (AUTO) 10.4 K/uL (4.8-10.8)
[2018-12-29] MEDS: ZOSYN 3.375GM+NS 50ML 50 ML IV SCH ×2 (04:37→17:00)
[2018-12-29 04:44] LABS: ALBUMIN 2.4 g/dL (3.5-5.0); PHOSPHORUS 8.4 mg/dL (2.5-4.9); POTASSIUM 4.9 mmol/L (3.5-5.1)
[2018-12-29 04:48] LABS: CREATININE 12.9 mg/dL (0.5-1.5)
[2018-12-29] MEDS: INSULIN R PO SS1 SQ SCH ×3 (05:19→16:30)
--- NOTE | 2018-12-29 07:50 | NUR ---
PATIENT UP IN CHAIR, STATED IS WAITING TO BE DIALYZED TODAY. STATED WANTS TO GO HOME TODAY.
[2018-12-29 08:00] VITALS: BP 117/53
[2018-12-29] MEDS: PREGABALIN 75 MG CAPSULE PO SCH (09:29)
[2018-12-29] MEDS: FERROUS SULFATE 325 MG TABLET.DR PO SCH ×2 (09:29→17:00)
[2018-12-29] MEDS: MIDODRINE HCL 5 MG TABLET PO SCH (09:29)
[2018-12-29] MEDS: LORATADINE 10 MG TABLET PO SCH (09:30)
[2018-12-29] MEDS: FUROSEMIDE 20 MG TABLET PO SCH ×2 (09:30→17:00)
[2018-12-29] MEDS: SEVELAMER HCL 800 MG TABLET PO SCH ×3 (09:30→17:00)
[2018-12-29] MEDS ORDERED: LEVO500T2 PO (11:46)
[2018-12-29 12:00] VITALS: BP 94/52
[2018-12-29 16:00] VITALS: BP 111/56
[2018-12-29] MEDS ORDERED: LEVOFLOXACIN 500 MG/D5W 100 ML 100 ML IV SCH (18:00)
--- NOTE | 2018-12-29 18:35 | NUR ---
DISCHARGE PATIENT GIVEN DISCHARGE INSTRUCTIONS VIA TEACH BACK. PATIENT SCHEDULED TO FOLLOW WITH DR. LU AND DR. MANNING. RX GIVEN FOR LEVAQUIN 500MG 1 TAB PO EVERY OTHER DAY X 8 DAYS. 20G PIV TO LAC DISCONTINUED, TIP INTACT. PATIENT STABLE AT THIS TIME.
== END 2018-12-29 15:40 | disposition home or self-care (01) ==
LOC: EDH 13:58 → EDHIP 15:14 → 3CH 17:04
PROVIDERS: ADMIT Internal Medicine Pulmonary Disease; ATTEND Internal Medicine Pulmonary Disease
DX: J18.9 Pneumonia, unspecified organism (principal); I12.0 Hypertensive chronic kidney disease with stage 5 chronic kidney disease or end stage renal disease; N18.6 End stage renal disease; E11.21 Type 2 diabetes mellitus with diabetic nephropathy; E11.22 Type 2 diabetes mellitus with diabetic chronic kidney disease; E78.5 Hyperlipidemia, unspecified; E87.1 Hypo-osmolality and hyponatremia; E87.5 Hyperkalemia; Z87.891 Personal history of nicotine dependence; Z99.2 Dependence on renal dialysis
CPT/HCPCS: G0257 ×96; 36415; 71045; 80053; 80069; 82948; 83605; 84145; 85025; 87040; 87804; 90935; 93005; 94664; 96365; 96366; 96367; 96372; 97039; G0378; J1815; J1956; J2543; J3370

== ENCOUNTER 2020-04-20 16:03 | Observation (INO) | payer OTHER ==
[~2020-04-20 16:03] MED LIST changes: -ASPI-1181 PO; +ASPI-1443 PO; -EZET10TA26 PO; +EZET10TA48 PO; +IPRA4AER IH; +LEVO500T2 PO; +LORA10TA7 PO; +MIDO5TAB4 PO
[2020-04-20] MEDS ORDERED: SODIUM CHLORIDE 0.9% 50 ML IV ONE (16:43)
[2020-04-20] MEDS ORDERED: CEFTRIAXONE SODIUM 1 GM ONE (16:43)
[2020-04-20 16:52] LABS: BASOPHILS % (AUTO) 0.4 % (0.0-5.0); HEMATOCRIT 35.4 % (42-54); LYMPHOCYTES % (AUTO) 7.1 % (21.0-51.0); MEAN CORPUSCULAR HEMOGLOBIN 33.8 pg (27.0-33.0); MEAN CORPUSCULAR HGB CONC 33.9 g/dL (32.0-36.0); MEAN CORPUSCULAR VOLUME 99.7 fL (79-99); MONOCYTES % (AUTO) 11.7 % (3.0-13.0); NEUTROPHILS % (AUTO) 79.5 % (40.0-77.0); PLATELET COUNT (AUTO) 124 K/uL (130-400); RED BLOOD CELL COUNT(AUTO) 3.55 MIL/uL (4.50-6.20); RED CELL DISTRIBUTION WIDTH 13.2 % (11.0-15.5); WHITE BLOOD COUNT (AUTO) 7.2 K/uL (4.8-10.8)
[2020-04-20 17:05] LABS: CREATININE 4.7 mg/dL (0.5-1.5); POTASSIUM 3.7 mmol/L (3.5-5.1)
[2020-04-20 17:08] LABS: INR 0.91 (0.85-1.15); PROTHROMBIN TIME 9.9 SEC (9.6-11.6)
[2020-04-20 17:10] LABS: BILIRUBIN,TOTAL 0.4 mg/dL (0.2-1.0); CRP QUANTITATIVE 146.8 mg/L (0.00-9.0); TOTAL PROTEIN, SERUM 7.1 g/dL (6.0-8.3)
[2020-04-20 18:01] LABS: ERYTHROCYTE SEDIMENTATION RATE 57 MM/HR (0-20)
[2020-04-20] MEDS ORDERED: METHYLPREDNISOLONE SOD SUCC 40MG/ML 1ML ONE (18:28)
[2020-04-20 18:53] LABS: ABG BASE EXCESS 2.4 mmol/L (-2.0-3.0); ABG HCO3 27.6 mmol/L (21.0-28.0); ABG OXYGEN SATURATION 92.8 % (95.0-99.0); ABG PCO2 44 mmHg (35-48)
[2020-04-20 18:55] LABS: FERRITIN 1720 ng/mL (30-400)
[2020-04-20] MEDS: PHARMACY COMMUNICATION MISC SCH (20:00)
[2020-04-20] MEDS ORDERED: HEPARIN SODIUM 5000UNIT/ML 1ML VIAL SQ SCH (20:00)
[2020-04-20] MEDS ORDERED: HEPARIN SODIUM 5000UNIT/ML 1ML VIAL SQ ONE (20:45)
[2020-04-20] MEDS ORDERED: HEPARIN SODIUM 5000UNIT/ML 1ML VIAL ONE (20:50)
[2020-04-20] MEDS ORDERED: FAMOTIDINE 20MG TAB 20 MG TAB ONE (20:50)
[2020-04-20] MEDS ORDERED: AZITHROMYCIN 250 MG TABLET PO ONE (20:51)
[2020-04-20 22:30] VITALS: BP 132/60
[2020-04-20] MEDS ORDERED: IRON18TA PO (22:48)
[2020-04-20] MEDS ORDERED: FOLI1TAB61 PO (22:48)
[2020-04-20] MEDS ORDERED: CETI10TA57 PO (22:48)
[2020-04-20] MEDS ORDERED: ACET-66 PO (22:49)
[2020-04-21 03:00] VITALS: BP 126/67
[2020-04-21] MEDS: PHARMACY COMMUNICATION MISC SCH ×3 (03:32→19:27)
[2020-04-21 05:32] LABS: HEMATOCRIT 37.8 % (42-54); MEAN CORPUSCULAR HEMOGLOBIN 33.6 pg (27.0-33.0); MEAN CORPUSCULAR HGB CONC 33.3 g/dL (32.0-36.0); MEAN CORPUSCULAR VOLUME 100.8 fL (79-99); RED BLOOD CELL COUNT(AUTO) 3.75 MIL/uL (4.50-6.20); WHITE BLOOD COUNT (AUTO) 5.5 K/uL (4.8-10.8)
[2020-04-21 05:50] LABS: ALBUMIN 2.9 g/dL (3.5-5.0); BILIRUBIN,TOTAL 0.4 mg/dL (0.2-1.0); POTASSIUM 4.7 mmol/L (3.5-5.1)
[2020-04-21 08:33] VITALS: BP 144/70
[2020-04-21] MEDS: AZITHROMYCIN 250 MG TABLET PO SCH (09:18)
[2020-04-21] MEDS: FAMOTIDINE 20MG TAB 20 MG TAB PO SCH (09:18)
[2020-04-21] MEDS: DEXAMETHASONE SOD PHOSPHATE 10MG/ML 1ML VIAL IV SCH (09:31)
[2020-04-21 11:33] VITALS: BP 132/60
--- NOTE | 2020-04-21 15:11 | NUR ---
DC PLAN PATIENT LIVES WITH SPOUSE. INDEPENDENT ABLE TO PERFORM ADL'S. USES A CANE. PATIENT HAS PROVIDER 4 HRS. GOES TO [facility] TTS. FEELS SAFE FOR PATIENT TO RETURN HOME. CALLED DIALYSIS THEY DID NOT KNOW THAT HE WAS POSITIVE. SAID ONCE DISCHARGED HE WILL HAVE TO GO TO [facility] FOR COHORT. WILL NEED TO CALL CLINIC WHEN PATIENT DISCHARGED TO CONFIRM CHAIR TIME. MILES FOR DIALYSIS AND FOR 02 IF NEEDED GOTTEN FROM DAUGHTER. COVID - Patient admitted for covid 19 test was done outside. After much back and forth. It appears he had it done in a line testing in [place]. Daughter does not know what they were called and has no phone number. Said they got called telling them he was positive. Patient goes to [facility] dialysis in [facility] they did not know he was tested. He had two treatments since testing. I Called to [facility] he did not have it done there and they have no record. Called [facility] said he does show up as positive but the list she has does not tell her where it got done. Not sure if there is a way to get lab results. Addendum: 04/21/20 at 1515 by MADIE WICK RN CM Amended: Links added.
[2020-04-21 15:41] VITALS: BP 123/65
[2020-04-21] MEDS: CEFTRIAXONE SODIUM 1 GM IVP SCH (17:29)
[2020-04-21 20:38] VITALS: BP 122/59
[2020-04-21 23:59] VITALS: BP 123/57
[2020-04-22 03:41] VITALS: BP 126/56
[2020-04-22] MEDS: PHARMACY COMMUNICATION MISC SCH ×3 (03:43→11:56)
[2020-04-22 05:00] LABS: ABG BASE EXCESS -0.9 mmol/L (-2.0-3.0); ABG HCO3 24.4 mmol/L (21.0-28.0); ABG OXYGEN SATURATION 94.7 % (95.0-99.0); ABG PCO2 43 mmHg (35-48)
[2020-04-22 05:29] LABS: BASOPHILS % (AUTO) 0.2 % (0.0-5.0); HEMATOCRIT 36.1 % (42-54); LYMPHOCYTES % (AUTO) 5.7 % (21.0-51.0); MEAN CORPUSCULAR HEMOGLOBIN 33.7 pg (27.0-33.0); MEAN CORPUSCULAR HGB CONC 34.1 g/dL (32.0-36.0); MEAN CORPUSCULAR VOLUME 98.9 fL (79-99); NEUTROPHILS % (AUTO) 86.7 % (40.0-77.0); PLATELET COUNT (AUTO) 158 K/uL (130-400); RED BLOOD CELL COUNT(AUTO) 3.65 MIL/uL (4.50-6.20); RED CELL DISTRIBUTION WIDTH 12.8 % (11.0-15.5); WHITE BLOOD COUNT (AUTO) 10.2 K/uL (4.8-10.8)
[2020-04-22 06:00] LABS: ALBUMIN 2.8 g/dL (3.5-5.0); BILIRUBIN,TOTAL 0.3 mg/dL (0.2-1.0); MAGNESIUM 2.5 mg/dL (1.80-2.40); PHOSPHORUS 5.8 mg/dL (2.5-4.9); POTASSIUM 4.7 mmol/L (3.5-5.1); TOTAL PROTEIN, SERUM 6.7 g/dL (6.0-8.3)
[2020-04-22 06:02] LABS: CREATININE 8.6 mg/dL (0.5-1.5)
[2020-04-22 08:35] VITALS: BP 131/61
[2020-04-22] MEDS: FAMOTIDINE 20MG TAB 20 MG TAB PO SCH (08:51)
[2020-04-22] MEDS: CEFTRIAXONE SODIUM 1 GM IVP SCH (08:51)
[2020-04-22] MEDS: DEXAMETHASONE SOD PHOSPHATE 10MG/ML 1ML VIAL IV SCH (08:51)
[2020-04-22] MEDS: AZITHROMYCIN 250 MG TABLET PO SCH (08:51)
[2020-04-22 12:22] VITALS: BP 119/54
--- NOTE | 2020-04-22 12:32 | NUR ---
DIALYSIS SCHEDULE AT [facility] SW contacted [facility] and spoke to charge nurse, Peggy Foster. She provided schedule of TTS at 10:30am starting on 04/25/2020. Peggy requested copy of H&P, Flow sheets and Nephrology notes to be sent to [facility]. [facility]INE sent information.
[2020-04-22] MEDS ORDERED: LEVO500T2 PO (16:03)
[2020-04-22] MEDS ORDERED: ASPI-1197 PO (16:07)
--- NOTE | 2020-04-22 17:00 | NUR ---
cm note call made to pt's daughter ioana matos [phone] and updated on need for her to take pt to [facility] on friday for next scheduled dialysis., instead of regularly scheduled facility, due to covid status, and as per request of her current dialysis center. verbalizes understanding.
--- NOTE | 2020-04-22 18:34 | NUR ---
Dialysis done on shift and tolerated well. VSS with no complaints of pain or discomfort. Patient cleared by all services to be discharged home and will be following up with PCP and [facility] in 1-2 weeks. DC information reviewed with patient and family by accounting policy consultantLeighton. Pt verbalized understanding.
--- NOTE | 2020-04-23 07:55 | NUR ---
cm note faxed h&P,Nephro notes,Progress notes, flow sheet and h&P to [facility] dialysis [facility] as per dialysis center requested.
== END 2020-04-22 19:00 | disposition home or self-care (01) ==
LOC: EDH 16:03 → EDHIP 19:15 → 2DH 22:44
PROVIDERS: ADMIT Internal Medicine Critical Care Medicine; ATTEND Internal Medicine Critical Care Medicine
DX: U07.1 COVID-19 (principal); I12.0 Hypertensive chronic kidney disease with stage 5 chronic kidney disease or end stage renal disease; E11.22 Type 2 diabetes mellitus with diabetic chronic kidney disease; N18.6 End stage renal disease; E78.5 Hyperlipidemia, unspecified; J45.909 Unspecified asthma, uncomplicated; D63.8 Anemia in other chronic diseases classified elsewhere; G30.9 Alzheimer's disease, unspecified; F02.80 Dementia in other diseases classified elsewhere, unspecified severity, without behavioral disturbance, psychotic disturbance, mood disturbance, and anxiety; I25.10 Atherosclerotic heart disease of native coronary artery without angina pectoris; Z79.82 Long term (current) use of aspirin; Z99.2 Dependence on renal dialysis
CPT/HCPCS: 36415 ×3; 36600 ×2; 71045 ×2; 71250; 80053 ×3; 80074; 82550; 82728; 82803 ×2; 82948; 83605; 83735; 84100; 84145; 84484; 85025 ×2; 85027; 85378 ×2; 85610; 85651; 85730; 86140; 87040 ×2; 93005; 96374; 96375; 96376; 99291; G0378 ×6; J0696 ×3; J1100 ×3; J1644; J2920; U0003; 90935

== ENCOUNTER 2020-04-27 17:43 | Inpatient (IN) | payer OTHER ==
[~2020-04-27] VITALS: Ht 165.1 cm; Wt 90.2 kg
[~2020-04-27 17:43] MED LIST changes: +ACET-66 PO; -ALBU2.5V2 IH; +ASPI-1197 PO; -ASPI-1443 PO; +CETI10TA57 PO; -FERR325T22 PO; +FOLI1TAB61 PO; -IPRA4AER IH; +IRON18TA PO; -IRON1CAP30 PO; -LORA10TA7 PO; -SEVE800T7 PO
[2020-04-27 18:29] LABS: BASOPHILS % (AUTO) 0.1 % (0.0-5.0); EOSINOPHILS % (AUTO) 0.4 % (0.0-8.0); HEMATOCRIT 32.7 % (42-54); LYMPHOCYTES % (AUTO) 5.8 % (21.0-51.0); MEAN CORPUSCULAR HEMOGLOBIN 33.6 pg (27.0-33.0); MEAN CORPUSCULAR HGB CONC 33.9 g/dL (32.0-36.0); MEAN CORPUSCULAR VOLUME 99.1 fL (79-99); MONOCYTES % (AUTO) 10.8 % (3.0-13.0); NEUTROPHILS % (AUTO) 82.4 % (40.0-77.0); PLATELET COUNT (AUTO) 175 K/uL (130-400); RED CELL DISTRIBUTION WIDTH 12.8 % (11.0-15.5); WHITE BLOOD COUNT (AUTO) 7.6 K/uL (4.8-10.8)
[2020-04-27 18:43] LABS: INR 0.96 (0.85-1.15); PARTIAL THROMBOPLASTIN TIME 31.7 SEC (26.3-35.5); PROTHROMBIN TIME 10.4 SEC (9.6-11.6)
[2020-04-27 18:46] LABS: CARBON DIOXIDE 32 mmol/L (21-32); CHLORIDE 97 mmol/L (101-111); CREATININE 4.5 mg/dL (0.5-1.5); GLOMERULAR FILTR. RATE CALC 13 mL/min (>60); GLUCOSE,RANDOM 129 mg/dL (70-105); POTASSIUM 3.6 mmol/L (3.5-5.1); SODIUM SERUM 137 mmol/L (136-145); UREA NITROGEN, BLOOD 19 mg/dL (7-18)
[2020-04-27 18:57] LABS: ALANINE AMINOTRANSFERASE 23 U/L (12-78); ALBUMIN 2.4 g/dL (3.5-5.0); ASPARTATE AMINOTRANSFERASE 34 U/L (10-37); BILIRUBIN,TOTAL 0.5 mg/dL (0.2-1.0); CREATINE KINASE, TOTAL 33 U/L (21-232); MYOGLOBIN 341 ng/mL (10-92); TOTAL PROTEIN, SERUM 6.6 g/dL (6.0-8.3); TROPONIN I < 0.04 ng/mL (0.00-0.06)
[2020-04-27] MEDS: CEFTRIAXONE SODIUM 1 GM IVP SCH (19:45)
[2020-04-27] MEDS ORDERED: AZITHROMYCIN 250 MG TABLET PO SCH (19:45)
[2020-04-27] MEDS ORDERED: ACETAMINOPHEN 325 MG TAB PO PRN (20:15)
[2020-04-27] MEDS ORDERED: HYDRALAZINE HCL 20 MG/ML VIAL IV PRN (20:15)
[2020-04-27] MEDS ORDERED: METHYLPREDNISOLONE SOD SUCC 40MG/ML 1ML ONE (20:20)
[2020-04-27] MEDS ORDERED: ZOSYN 3.375GM+NS 50ML 50 ML IV ONE (20:20)
[2020-04-27 21:35] VITALS: BP 135/62
[2020-04-27] MEDS ORDERED: ALBU0.63 IH (22:38)
[2020-04-27] MEDS ORDERED: OMEP20CA12 PO (22:38)
[2020-04-27] MEDS ORDERED: FURO80TA3 PO (22:38)
[2020-04-27] MEDS ORDERED: FLUT1AER IH (22:38)
[2020-04-27 23:18] VITALS: BP 128/57
[2020-04-28 03:00] VITALS: BP 132/62
[2020-04-28 05:17] LABS: BASOPHILS % (AUTO) 0.1 % (0.0-5.0); HEMATOCRIT 35.3 % (42-54); LYMPHOCYTES % (AUTO) 6.4 % (21.0-51.0); MEAN CORPUSCULAR HEMOGLOBIN 32.8 pg (27.0-33.0); MEAN CORPUSCULAR HGB CONC 32.6 g/dL (32.0-36.0); MEAN CORPUSCULAR VOLUME 100.6 fL (79-99); MONOCYTES % (AUTO) 2.4 % (3.0-13.0); NEUTROPHILS % (AUTO) 90.7 % (40.0-77.0); PLATELET COUNT (AUTO) 184 K/uL (130-400); RED BLOOD CELL COUNT(AUTO) 3.51 MIL/uL (4.50-6.20); RED CELL DISTRIBUTION WIDTH 13.1 % (11.0-15.5); WHITE BLOOD COUNT (AUTO) 6.7 K/uL (4.8-10.8)
[2020-04-28 06:09] LABS: ALBUMIN 2.4 g/dL (3.5-5.0); BILIRUBIN,TOTAL 0.3 mg/dL (0.2-1.0); POTASSIUM 4.5 mmol/L (3.5-5.1); TOTAL PROTEIN, SERUM 6.7 g/dL (6.0-8.3)
[2020-04-28 08:05] VITALS: BP 130/67
[2020-04-28] MEDS: ASCORBIC ACID 500 MG TAB PO SCH (08:17)
[2020-04-28] MEDS: CEFTRIAXONE SODIUM 1 GM IVP SCH (08:17)
[2020-04-28] MEDS: FAMOTIDINE 20MG TAB 20 MG TAB PO SCH (08:17)
[2020-04-28] MEDS: ZINC SULFATE 220 CAPSULE PO SCH (08:18)
[2020-04-28] MEDS ORDERED: ENOXAPARIN SODIUM 30 MG/0.3 ML SQ SCH (09:00)
[2020-04-28 09:15] LABS: CRP QUANTITATIVE 203.2 mg/L (0.00-9.0)
[2020-04-28 12:20] VITALS: BP 121/51
[2020-04-28] MEDS: HEPARIN SODIUM 5000UNIT/ML 1ML VIAL SQ SCH (13:15)
--- NOTE | 2020-04-28 14:38 | NUR ---
DCP CM spoke to pt discussed dc plans. Pt is independent prior to admission, lives at home with spouse. Pt has a cane, provider 20hrs/wk, nebulizer machine, goves to [facility]TS. Denies any other equipments/services. Feels safe to go back home, daughter able to assist with transportation and needs as necessary. DC plan to home once stable. CM to cont to follow up. Addendum: 04/28/20 at 1447 by ALMITA SIDHU LVN CM Amended: Links added.
[2020-04-28 16:15] VITALS: BP 119/57
[2020-04-28 19:51] VITALS: BP 118/55
[2020-04-29] VITALS (7 sets, daily range): BP systolic 101–164; BP diastolic 52–78
[2020-04-29] MEDS: HEPARIN SODIUM 5000UNIT/ML 1ML VIAL SQ SCH ×3 (01:44→20:24)
[2020-04-29 06:00] LABS: BASOPHILS % (AUTO) 0.1 % (0.0-5.0); EOSINOPHILS % (AUTO) 0.1 % (0.0-8.0); HEMATOCRIT 34.9 % (42-54); LYMPHOCYTES % (AUTO) 4.5 % (21.0-51.0); MEAN CORPUSCULAR HEMOGLOBIN 33.2 pg (27.0-33.0); MEAN CORPUSCULAR HGB CONC 33.2 g/dL (32.0-36.0); MONOCYTES % (AUTO) 7.8 % (3.0-13.0); NEUTROPHILS % (AUTO) 87.1 % (40.0-77.0); PLATELET COUNT (AUTO) 209 K/uL (130-400); RED BLOOD CELL COUNT(AUTO) 3.49 MIL/uL (4.50-6.20); WHITE BLOOD COUNT (AUTO) 13.9 K/uL (4.8-10.8)
[2020-04-29 06:33] LABS: ALBUMIN 2.3 g/dL (3.5-5.0); BILIRUBIN,DIRECT 0.1 mg/dL (0.0-0.3); BILIRUBIN,TOTAL 0.3 mg/dL (0.2-1.0); CRP QUANTITATIVE 162.4 mg/L (0.00-9.0); MAGNESIUM 2.3 mg/dL (1.80-2.40); PHOSPHORUS 6.6 mg/dL (2.5-4.9); POTASSIUM 4.3 mmol/L (3.5-5.1); TOTAL PROTEIN, SERUM 6.5 g/dL (6.0-8.3)
[2020-04-29 07:02] LABS: CREATININE 8.4 mg/dL (0.5-1.5)
[2020-04-29] MEDS: DEXAMETHASONE SOD PHOSPHATE 4 MG/ML 1ML VIAL IVP SCH (08:56)
[2020-04-29] MEDS: ZINC SULFATE 220 CAPSULE PO SCH (08:57)
[2020-04-29] MEDS: ASCORBIC ACID 500 MG TAB PO SCH (08:57)
[2020-04-29] MEDS: FAMOTIDINE 20MG TAB 20 MG TAB PO SCH (08:57)
--- NOTE | 2020-04-29 18:16 | NUR ---
pt aox4. vss. currently receiving hemodyalisis. denied pain. on 3l nc O2. no acute events to report this shift.
--- NOTE | 2020-04-30 00:33 | NUR ---
New Onset Afib Patient has converted to Afib RVR with HR in the 130s sustaining. The MD on-call Tam with [facility], ordered for a cardizem drip to be initiated without a bolus. Pt is not showing any S/S of distress. Vitals include BP 101/55, HR 138, 93% BNC, Temp. 98.1. Cardiology is to be consulted in the am.
[2020-04-30] MEDS ORDERED: DILTIAZEM HCL 5 MG/ML 10 ML VIAL IV ONE (00:43)
[2020-04-30] MEDS ORDERED: DILTIAZEM HCL 125 MG/25 ML 125 MG in SODIUM CHLORIDE 0.9% 100 ML IV SCH (00:45)
[2020-04-30 03:20] VITALS: BP 92/46
[2020-04-30 05:56] VITALS: BP 96/54
[2020-04-30 06:07] LABS: HEMATOCRIT 33.7 % (42-54); MEAN CORPUSCULAR HEMOGLOBIN 32.6 pg (27.0-33.0); MEAN CORPUSCULAR HGB CONC 32.9 g/dL (32.0-36.0); MEAN CORPUSCULAR VOLUME 99.1 fL (79-99); RED BLOOD CELL COUNT(AUTO) 3.4 MIL/uL (4.50-6.20); RED CELL DISTRIBUTION WIDTH 12.9 % (11.0-15.5); WHITE BLOOD COUNT (AUTO) 11.1 K/uL (4.8-10.8)
[2020-04-30 06:28] LABS: ALBUMIN 2.1 g/dL (3.5-5.0); BILIRUBIN,TOTAL 0.3 mg/dL (0.2-1.0); CREATININE 6.4 mg/dL (0.5-1.5); CRP QUANTITATIVE 107.9 mg/L (0.00-9.0); MAGNESIUM 2.6 mg/dL (1.80-2.40); PHOSPHORUS 5.9 mg/dL (2.5-4.9); POTASSIUM 3.9 mmol/L (3.5-5.1); TOTAL PROTEIN, SERUM 6.1 g/dL (6.0-8.3)
[2020-04-30] MEDS: FAMOTIDINE 20MG TAB 20 MG TAB PO SCH (08:49)
[2020-04-30] MEDS: DEXAMETHASONE SOD PHOSPHATE 4 MG/ML 1ML VIAL IVP SCH (08:49)
[2020-04-30] MEDS: ASCORBIC ACID 500 MG TAB PO SCH (08:49)
[2020-04-30] MEDS: ZINC SULFATE 220 CAPSULE PO SCH (08:50)
[2020-04-30] MEDS: HEPARIN SODIUM 5000UNIT/ML 1ML VIAL SQ SCH ×2 (08:51→20:18)
[2020-04-30 09:10] VITALS: BP 116/54
[2020-04-30 11:48] VITALS: BP 116/47
[2020-04-30 16:17] VITALS: BP 144/59
[2020-04-30 19:36] LABS: HEMATOCRIT 34.8 % (42-54); LYMPHOCYTES % (AUTO) 5.2 % (21.0-51.0); MEAN CORPUSCULAR HEMOGLOBIN 33.2 pg (27.0-33.0); MEAN CORPUSCULAR HGB CONC 33.3 g/dL (32.0-36.0); MEAN CORPUSCULAR VOLUME 99.7 fL (79-99); MONOCYTES % (AUTO) 3.9 % (3.0-13.0); NEUTROPHILS % (AUTO) 90.5 % (40.0-77.0); PLATELET COUNT (AUTO) 193 K/uL (130-400); RED BLOOD CELL COUNT(AUTO) 3.49 MIL/uL (4.50-6.20); WHITE BLOOD COUNT (AUTO) 9.5 K/uL (4.8-10.8)
[2020-04-30 20:15] VITALS: BP 120/52
[2020-05-01] VITALS (11 sets, daily range): BP systolic 112–152; BP diastolic 24–90
[2020-05-01 06:06] LABS: ALBUMIN 2.3 g/dL (3.5-5.0); BILIRUBIN,TOTAL 0.4 mg/dL (0.2-1.0); MAGNESIUM 3.2 mg/dL (1.80-2.40); PHOSPHORUS 8.3 mg/dL (2.5-4.9); POTASSIUM 4.2 mmol/L (3.5-5.1); TOTAL PROTEIN, SERUM 6.2 g/dL (6.0-8.3)
[2020-05-01 06:17] LABS: CREATININE 8.8 mg/dL (0.5-1.5)
[2020-05-01] MEDS: DEXAMETHASONE SOD PHOSPHATE 4 MG/ML 1ML VIAL IVP SCH (08:18)
[2020-05-01] MEDS: ZINC SULFATE 220 CAPSULE PO SCH (08:19)
[2020-05-01] MEDS: ASCORBIC ACID 500 MG TAB PO SCH (08:19)
[2020-05-01] MEDS: HEPARIN SODIUM 5000UNIT/ML 1ML VIAL SQ SCH ×2 (08:26→19:46)
[2020-05-01] MEDS: FAMOTIDINE 20MG TAB 20 MG TAB PO SCH (08:27)
[2020-05-01] MEDS: CALCIUM ACETATE 667 MG CAPSULE PO SCH (18:03)
[2020-05-01] MEDS ORDERED: METOPROLOL TARTRATE 25 MG TAB ONE (19:15)
[2020-05-01] MEDS: METOPROLOL SUCCINATE 50 MG TAB.SR.24H PO SCH (20:15)
[2020-05-02 04:40] VITALS: BP 119/54
--- NOTE | 2020-05-02 08:28 | NUR ---
PT status Pt found at change of shift on Rapid AFIb, cardizem gtt initiated by estuardo ariza. BP elevated. pt i s now at max cardizem 15ml/hr. PT HR continue to be greater than 150's. rate control am meds given. [facility] office notified, spoke to office, per office patient will be reevaluated today by DR Carlson. no new ordered was obtained. PT denies Chest pain and cardiac symptoms. pt on tele monitor being monitor closely. Addendum: 05/02/20 at 1548 by CARMEN BROWN RN RN Addendum 05/02/2020. Incorrect patient
[2020-05-02 08:30] VITALS: BP_SYST 136; BP_SYST 137; BP_DIAS 62; BP_DIAS 84
[2020-05-02] MEDS: DEXAMETHASONE SOD PHOSPHATE 4 MG/ML 1ML VIAL IVP SCH (09:02)
[2020-05-02] MEDS: CALCIUM ACETATE 667 MG CAPSULE PO SCH ×3 (09:02→17:00)
[2020-05-02] MEDS: FAMOTIDINE 20MG TAB 20 MG TAB PO SCH (09:02)
[2020-05-02] MEDS: METOPROLOL SUCCINATE 50 MG TAB.SR.24H PO SCH ×2 (09:04→19:50)
[2020-05-02] MEDS: ZINC SULFATE 220 CAPSULE PO SCH (09:05)
[2020-05-02] MEDS: ASCORBIC ACID 500 MG TAB PO SCH (09:05)
[2020-05-02] MEDS: HEPARIN SODIUM 5000UNIT/ML 1ML VIAL SQ SCH ×2 (09:08→19:50)
[2020-05-02 12:14] VITALS: BP 121/58
[2020-05-02 16:30] VITALS: BP 151/58
[2020-05-02 19:45] VITALS: BP 121/57
[2020-05-02 23:05] VITALS: BP 146/67
[2020-05-03] MEDS ORDERED: METO50TA9 PO (00:57)
[2020-05-03 05:46] VITALS: BP 127/55
[2020-05-03 08:00] VITALS: BP 172/66
[2020-05-03] MEDS: CALCIUM ACETATE 667 MG CAPSULE PO SCH ×4 (08:54→17:17)
[2020-05-03] MEDS: FAMOTIDINE 20MG TAB 20 MG TAB PO SCH (08:55)
[2020-05-03] MEDS: ZINC SULFATE 220 CAPSULE PO SCH (08:55)
[2020-05-03] MEDS: DEXAMETHASONE SOD PHOSPHATE 4 MG/ML 1ML VIAL IVP SCH (08:55)
[2020-05-03] MEDS: METOPROLOL SUCCINATE 50 MG TAB.SR.24H PO SCH (08:55)
[2020-05-03] MEDS: ASCORBIC ACID 500 MG TAB PO SCH (08:55)
[2020-05-03] MEDS ORDERED: FUROSEMIDE 40 MG TABLET PO SCH (09:00)
[2020-05-03] MEDS ORDERED: APIXABAN 2.5 MG TABLET PO SCH (09:00)
[2020-05-03] MEDS ORDERED: APIX2.5T PO (10:18)
[2020-05-03] MEDS ORDERED: FURO40SO PO (10:19)
[2020-05-03] MEDS ORDERED: XUD IH (10:25)
[2020-05-03 12:49] VITALS: BP 135/56
--- NOTE | 2020-05-03 16:00 | NUR ---
CM Note: [facility] pending approval and delivery for home O2 CM spoke to pt discussed need for oxygen at home, pt is agreeable, telephone consent obtained MILES for any in network DME. Faxed order and clinicals to [facility], confirmation received. Pt pending approval at this time and delivery at patient's house. Primary nurse made aware of above. CM to cont to follow up.
--- NOTE | 2020-05-03 16:45 | NUR ---
CM Note: Hospital lend portable and stationary O2 to pt CM verified portable O2 and stationary O2 dropped off in pt's room. Pt safe to DC via private car. CM received confirmation w/[facility]. DME working on expediting approval and delivery of home O2 by tomorrow, aware pt will dc today. CM spoke to pt's daughter Ivette Stauffer given instruction on how to return O2 once own O2 is delivered. Daughter requested to have portable be return after dialysis tomorrow or once own O2 delivered. Informed daughter ok to borrow until own O2 is delivered. Daughter verbalized will return lend O2 as soon as pt's own delivered. Primary nurse aware of the above. CM to cont to follow up.
--- NOTE | 2020-05-03 18:54 | NUR ---
DISCHARGE HOME WITH OXYGEN, TRANSPORTED OUT OF THE UNIT BY TECH VIA WHEELCHAIR. VSS, NAD NOTED.
== END 2020-05-03 18:55 | disposition home or self-care (01) | DRG 177 ==
LOC: EDH 17:43 → EDHIP 19:32 → 4AH 21:40
PROVIDERS: ADMIT Internal Medicine Critical Care Medicine; ATTEND Internal Medicine Critical Care Medicine
PROC: 5A1D70Z Performance of Urinary Filtration, Intermittent, Less than 6 Hours Per Day (ICD-10-PCS; principal; 2020-04-29)
PROC: XW13325 Transfusion of Convalescent Plasma (Nonautologous) into Peripheral Vein, Percutaneous Approach, New Technology Group 5 (ICD-10-PCS; 2020-05-01)
PROC: XW13325 Transfusion of Convalescent Plasma (Nonautologous) into Peripheral Vein, Percutaneous Approach, New Technology Group 5 (ICD-10-PCS; 2020-05-01)
PROC: 5A1D70Z Performance of Urinary Filtration, Intermittent, Less than 6 Hours Per Day (ICD-10-PCS; 2020-05-02)
DX: U07.1 COVID-19 (principal); J12.89 Other viral pneumonia; J96.01 Acute respiratory failure with hypoxia; N18.6 End stage renal disease; I12.0 Hypertensive chronic kidney disease with stage 5 chronic kidney disease or end stage renal disease; E44.0 Moderate protein-calorie malnutrition; D68.59 Other primary thrombophilia; D63.8 Anemia in other chronic diseases classified elsewhere; E11.51 Type 2 diabetes mellitus with diabetic peripheral angiopathy without gangrene; E11.22 Type 2 diabetes mellitus with diabetic chronic kidney disease; E78.5 Hyperlipidemia, unspecified; I48.0 Paroxysmal atrial fibrillation; E66.01 Morbid (severe) obesity due to excess calories; E83.39 Other disorders of phosphorus metabolism; Z68.32 Body mass index [BMI] 32.0-32.9, adult; Z90.5 Acquired absence of kidney; Z90.49 Acquired absence of other specified parts of digestive tract; Z99.2 Dependence on renal dialysis; Z87.891 Personal history of nicotine dependence; Z82.49 Family history of ischemic heart disease and other diseases of the circulatory system
CPT/HCPCS: 36415; 36430; 71045; 80053; 80076; 82550; 82728; 83605; 83615; 83735; 83874; 84100; 84145; 84484; 85025; 85027; 85378; 85610; 85730; 86140; 86850; 86900; 86901; 86927; 87040; 87426; 87486; 87581; 87633; 87798; 90935; 93005; 94760; 99291; G0378; J0696; J1100; J1644; J1650; J2543; J2920; U0003

== ENCOUNTER 2020-07-17 14:09 | Emergency (ER) | payer OTHER ==
[~2020-07-17 14:09] MED LIST changes: +APIX2.5T PO; +FLUT1AER IH; -FURO20TA4 PO; +FURO40SO PO; +METO50TA9 PO; -MIDO5TAB4 PO; +OMEP20CA12 PO; +XUD IH
[2020-07-17 15:24] LABS: BASOPHILS % (AUTO) 0.6 % (0.0-5.0); EOSINOPHILS % (AUTO) 3.9 % (0.0-8.0); HEMATOCRIT 32.8 % (42-54); LYMPHOCYTES % (AUTO) 20.4 % (21.0-51.0); MEAN CORPUSCULAR HEMOGLOBIN 33.5 pg (27.0-33.0); MEAN CORPUSCULAR HGB CONC 33.2 g/dL (32.0-36.0); MEAN CORPUSCULAR VOLUME 100.9 fL (79-99); MONOCYTES % (AUTO) 9.7 % (3.0-13.0); NEUTROPHILS % (AUTO) 65.2 % (40.0-77.0); PLATELET COUNT (AUTO) 161 K/uL (130-400); RED BLOOD CELL COUNT(AUTO) 3.25 MIL/uL (4.50-6.20); RED CELL DISTRIBUTION WIDTH 13.5 % (11.0-15.5); WHITE BLOOD COUNT (AUTO) 5.4 K/uL (4.8-10.8)
[2020-07-17 15:29] LABS: INR 0.91 (0.85-1.15); PARTIAL THROMBOPLASTIN TIME 25.9 SEC (26.3-35.5); PROTHROMBIN TIME 9.9 SEC (9.6-11.6)
[2020-07-17 15:33] LABS: ALBUMIN 3.1 g/dL (3.5-5.0); BILIRUBIN,TOTAL 0.4 mg/dL (0.2-1.0); POTASSIUM 4.8 mmol/L (3.5-5.1); TOTAL PROTEIN, SERUM 6.8 g/dL (6.0-8.3)
[2020-07-17 15:52] LABS: CREATININE 9.7 mg/dL (0.5-1.5)
== END 2020-07-17 19:08 | disposition home or self-care (01) ==
LOC: EDH 14:09
DX: K42.9 Umbilical hernia without obstruction or gangrene (principal); K43.9 Ventral hernia without obstruction or gangrene; I12.0 Hypertensive chronic kidney disease with stage 5 chronic kidney disease or end stage renal disease; N18.6 End stage renal disease; Z90.49 Acquired absence of other specified parts of digestive tract; Z87.891 Personal history of nicotine dependence; Z99.2 Dependence on renal dialysis
CPT/HCPCS: 36415; 74176; 80053; 85025; 85610; 85730

== ENCOUNTER → 2020-11-09 | Outpatient (CLI) | payer OTHER | END | disposition home or self-care (01) | LOC: RAH 13:34 | PROVIDERS: ATTEND Family Medicine | DX: J44.9 Chronic obstructive pulmonary disease, unspecified (principal); R22.2 Localized swelling, mass and lump, trunk | CPT/HCPCS: 71250 ==

== ENCOUNTER → 2021-10-26 | Outpatient (CLI) | payer OTHER ==
[~2021-10-26] VITALS: Ht 167.6 cm; Wt 86.2 kg
[~2021-10-26] MED LIST changes: +REGADENOSON 0.4 MG/5 ML PF SYG IVP SCH
== END | disposition home or self-care (01) ==
LOC: SHCH 10-22 08:57
PROVIDERS: ATTEND Internal Medicine Cardiovascular Disease
DX: I10 Essential (primary) hypertension (principal); E78.5 Hyperlipidemia, unspecified; R06.02 Shortness of breath
CPT/HCPCS: 78452; 93017; 96374; A9500 ×2; J2785